=== PATIENT | male | born 1970 | race Caucasian/White ===

== ENCOUNTER → 2024-06-22 | Outpatient (CLI) | payer BC ==
[2024-06-22 15:22] LABS: Basophils # (A) 0.05 X 10*3/uL (0.00-0.10); Basophils % (A) 1.3 %; Eosinophils % (A) 2.7 %; HCT 48.2 % (39.6-50.0); Lymphocytes # (A) 1.28 X 10*3/uL (0.90-5.00); Lymphocytes % (A) 34.3 %; MCH 29.5 pg (27.0-32.0); MCHC 33.2 g/dL (32.0-37.0); MCV 88.8 FL (80.0-97.0); Mean Platelet Volume 9.9 FL (9.5-12.2); Monocytes # (A) 0.49 X 10*3/uL (0.20-1.00); Monocytes % (A) 13.1 %; NRBC Per 100 WBC 0 X 10*3/uL (0.00-0.01); Neutrophils % (A) 48.3 %; Platelet Count 248 X 10*3/uL (140-440); RBC 5.43 X 10*6/uL (4.40-5.60); RDW 12.3 % (11.5-14.5); WBC 3.73 X 10*3/uL (4.50-10.00)
[2024-06-22 15:38] LABS: ALT 20 U/L (10-49); AST 28 U/L (14-35); Albumin 4.4 g/dL (3.8-4.9); Albumin/Globulin Ratio 1.76 Ratio (1.60-3.17); Alkaline Phosphatase 79 U/L (41-126); BUN/Creat Ratio 15.67 Ratio (12.00-20.00); Blood Urea Nitrogen 14.1 mg/dL (9.0-27.0); Calcium 9.6 mg/dL (8.7-10.3); Chloride 106 mmol/L (96-109); Chol/HDL Ratio 3.03 Ratio; Globulin 2.5 g/dL (1.6-3.3); Glucose 97 mg/dL (70-110); LDL Cholesterol,Calculated 89.3 mg/dL (0.0-131.0); Potassium 4.6 mmol/L (3.5-5.5); Sodium 142 mmol/L (135-145); Total Bilirubin 0.8 mg/dL (0.3-1.2); Total Protein 6.9 g/dL (6.2-8.2); VLDL Calculation 14.52 mg/dL (5.00-40.00)
== END | disposition home or self-care (01) ==
LOC: LABWHC1 08:47
PROVIDERS: ATTEND Pediatrics
DX: Z00.00 Encounter for general adult medical examination without abnormal findings (principal); Z12.5 Encounter for screening for malignant neoplasm of prostate; E78.5 Hyperlipidemia, unspecified; R73.9 Hyperglycemia, unspecified
CPT/HCPCS: 80061; 80053; 85025; 83036; 36415; G0103